=== PATIENT | female | born 1990 | race Caucasian/White ===

== ENCOUNTER 2024-07-22 17:05 | Emergency (ER) | payer OTHER ==
[2024-07-22 17:22] VITALS: TEMP 99.1
[2024-07-22 17:49] LABS: Absolute Neutrophil Ct (ANC) 8.26 x10^3/uL (1.56-6.13); BASOPHIL % 0.4 % (0.1-1.2); Basophil (Absolute #) 0.05 x10^3/uL (0.01-0.08); Eosinophil % 1.8 % (0.7-5.8); Eosinophil (Absolute #) 0.23 x10^3/uL (0.04-0.36); Hematocrit 40.3 % (34.1-44.9); Hemoglobin 13.4 g/dL (11.2-15.7); IMMATURE GRAN # 0.05 x10^3u/L (0.001-0.031); IMMATURE GRAN % 0.4 % (0.001-0.429); Lymphocytes % 22.4 % (19.3-51.7); Mean Cell Volume 85.4 fL (79.4-94.8); Mean Corpuscular Hemoglobin 28.4 pg (25.6-32.2); Mean Corpuscular Hgb Concent. 33.3 g/dL (32.2-35.5); Mean Platelet Volume 9.4 fL (9.4-12.3); Monocyte (Absolute #) 1.44 x10^3/uL (0.24-0.86); Monocytes % 11.1 % (4.7-12.5); Neutrophil % 63.9 % (34.0-71.1); Platelet Count 292 x10^3/uL (182-369); Red Blood Count 4.72 x10^6/uL (3.93-5.22); Red Cell Distribution Width 14.1 % (11.7-14.4); White Blood Count 12.9 x10^3/uL (3.98-10.04)
[2024-07-22 18:03] LABS: ALBUMIN 4.1 g/dL (3.5-5.0); ANION GAP 11.3 MEQ/L (5-15); BILIRUBIN,TOTAL 0.2 mg/dL (0.2-1.3); Calcium 9.1 mg/dL (8.4-10.2); Creatinine 1 0.7 mg/dL (0.52-1.04); EST GLOMERULAR FILTRATION RATE 115.6 ML/MIN; Potassium 4.1 mmol/L (3.5-5.1); Total Protein 7.2 g/dL (6.3-8.2)
--- NOTE | 2024-07-22 18:14 | ERPHSYRPT ---
- History of Present Illness Source: patient Exam Limitations: no limitations Patient Subjective Stated Complaint: BILATERAL LOWER BACK PAIN RADIATING DOWN LEGS, PAIN IN UPPER BACK AND CHEST, HARD TO TAKE A DEEP BREATH. Triage Nursing Assessment: PT. BROUGHT TO ROOM VIA W/C, SHAKY, UNSTEADY WITH AMBULATION. A&OX3, RESP SHALLOW BUT REGULAR. SKIN, PINK, WARM CLAMMY. NO EDEMA NOTED. Timing/Duration: week(s) Severity: mild Associated Symptoms: denies symptoms Hx Tetanus, Diphtheria Vaccination/Date Given: Yes Hx Influenza Vaccination/Date Given: No Hx Pneumococcal Vaccination/Date Given: No Immunizations Up to Date: No <LEANN RICHARDYESH - Last Filed: 07/22/24 18:44> <LANCE FLORENCE - Last Filed: 07/22/24 20:37> - History of Present Illness Time Seen by Provider: 07/22/24 18:09 Physician History: Patient is 34-year-old female with significant past medical history of depression came to the emergency room with multiple complaints including substernal chest pain radiating to the back complaining of tingling and numbness in both lower extremities complaining of left and right groin pain complaining of lower back pain and complaining of some low-grade fever. Patient is concerned that she might have a sepsis so she came to the emergency room to get it checked out. Patient has a low-grade fever but otherwise no other symptoms include headache nausea vomiting abdominal pain shortness of breath. (JOSE MANUELELZBIETA) Allergies/Adverse Reactions: No Known Drug Allergies Allergy (Verified 07/22/24 17:26) Home Medications: Paroxetine HCl 20 mg [Paxil 20 MG] 2 tab PO DAILY 07/22/24 [History] Travel Risk - International Travel Have you traveled outside of the country in past 3 weeks: No - Emerging Infectious Disease Are you exhibiting symptoms associated with any current EIDs: Yes Symptoms: Fever, Headaches/Body Aches/ <JOSE MANUEL,ELZBIETA - Last Filed: 07/22/24 18:44> - Review of Systems Constitutional: No Fever, No Chills Eyes: No Symptoms Ears, Nose, & Throat: No Symptoms Respiratory: No Cough, No Dyspnea Cardiac: Chest Pain, No Edema, No Syncope Abdominal/Gastrointestinal: No Abdominal Pain, No Nausea, No Vomiting, No Diarrhea Genitourinary Symptoms: No Dysuria Musculoskeletal: Back Pain, No Neck Pain Skin: No Rash Neurological: No Dizziness, No Focal Weakness, No Sensory Changes Psychological: No Symptoms Endocrine: No Symptoms All Other Systems: Reviewed and Negative <ELZBIETA RICHARD - Last Filed: 07/22/24 18:44> - Past Medical History Pertinent Past Medical History: Yes Neurological History: No Pertinent History ENT History: No Pertinent History Cardiac History: No Pertinent History Respiratory History: No Pertinent History Endocrine Medical History: No Pertinent History Musculoskeletal History: No Pertinent History GI Medical History: No Pertinent History History: No Pertinent History Female Reproductive Disorders: No Pertinent History Other Medical History: DEPRESSION/ANXIETY ASSOCIATED WITH MENOPAUSE - Past Surgical History Past Surgical History: Yes Neuro Surgical History: No Pertinent History Cardiac: No Pertinent History Respiratory: No Pertinent History Gastrointestinal: No Pertinent History Genitourinary: No Pertinent History Musculoskeletal: No Pertinent History Female Surgical History: Hysterectomy Other Surgical History: OOPHORECTOMY - Female History Hx Last Menstrual Period: HYSTERECTOMY Hx Now: No - Social History Smoking Status: Current every day smoker How long have you smoked: 13 Exposure to second hand smoke: No Drug Use: none - Social Determinants of Health Will the patient participate in the screening: Yes Do you worry about a steady place to live?: No Do you have any problems with any of the following?: No known problems In the past 12 months,have you had to go without utilities?: No Transportation Issues: No Has anyone in your support network made you feel unsafe?: No Have you or anyone in your house had to go without enough: No <ELZBIETA RICHARD - Last Filed: 07/22/24 18:44> - Physical Exam General Appearance: no apparent distress, alert Eye Exam: PERRL/EOMI, eyes nml inspection Ears, Nose, Throat Exam: normal ENT inspection, TMs normal, pharynx normal, moist mucous membranes Neck Exam: normal inspection, non-tender, supple, full range of motion Respiratory Exam: normal breath sounds, lungs clear, No respiratory distress Cardiovascular Exam: regular rate/rhythm, normal heart sounds, normal peripheral pulses Gastrointestinal/Abdomen Exam: soft, normal bowel sounds, No tenderness, No mass Back Exam: normal inspection, normal range of motion, No CVA tenderness, No vertebral tenderness Extremity Exam: normal inspection, normal range of motion, pelvis stable Neurologic Exam: alert, oriented x 3, cooperative, normal mood/affect, nml cerebellar function, nml station & gait, sensation nml, No motor deficits Skin Exam: normal color, warm, dry, No rash Lymphatic Exam: No adenopathy SpO2: 96 <JOSE MANUEL,ELZBIETA - Last Filed: 07/22/24 18:44> - Nursing Vital Signs Nursing Vital Signs: Initial Vital Signs Pulse Rate 93 H 07/22/24 17:05 Respiratory Rate 20 07/22/24 17:05 Blood Pressure 150/99 07/22/24 17:05 O2 Sat by Pulse Oximetry 97 07/22/24 17:05 Pain Scale Pain Intensity 3 - Course Nursing assessment & vital signs reviewed: Yes EKG Interpreted by Me: Sinus Rhythm - Radiology Exams Chest X-ray Interpretation: Interpreted by me, Reviewed by me, No Pneumonia, No Pn eumothorax <JOSE MANUEL, - Last Filed: 07/22/24 18:44> Ordered Tests: Active Orders 24 hr Category Date Time Status Wildlife Photographer STAT Care 07/22/24 17:28 Active EKG-ER Only STAT Care 07/22/24 17:28 Active IV Insertion STAT Care 07/22/24 17:28 Active Pulse Oximetry (ED) STAT Care 07/22/24 17:28 Active CHEST 2 VIEWS (PA AND LAT) Stat Exams 07/22/24 17:29 Completed CBC W DIFF Stat Lab 07/22/24 17:47 Completed CMP Stat Lab 07/22/24 17:47 Completed Lactic Acid Stat Lab 07/22/24 17:28 Completed PROCALCITONIN Stat Lab 07/22/24 17:47 Completed UA W/RFX UR CULTURE Stat Lab 07/22/24 18:26 Completed Medication Summary Discontinued Medications Generic Name Dose Route Start Last Admin Trade Name Freq PRN Reason Stop Dose Admin Ceftriaxone Sodium 1,000 mg 07/22/24 18:27 07/22/24 19:02 Ceftriaxone Sodium 1000 Mg Inj Vial IM 07/22/24 18:28 Not Given STAT ONE Ceftriaxone Sodium 1 gm in 100 mls @ 200 mls/hr 07/22/24 18:40 07/22/24 19:31 Rocephin 1 Gm / 100 Ml Nacl IV 07/22/24 19:09 Infused STAT ONE Infusion Ceftriaxone Sodium Confirm 07/22/24 18:44 Rocephin 1 Gm / 100 Ml Nacl Administered 07/22/24 18:45 Dose 1 gm in 100 mls @ ud IV .STK-MED ONE Ketorolac Tromethamine 60 mg 07/22/24 18:25 07/22/24 19:02 Ketorolac Tromethamine 30 Mg/Ml Inj IM 07/22/24 18:26 Not Given STAT ONE Ketorolac Tromethamine 30 mg 07/22/24 18:39 07/22/24 19:05 Ketorolac Tromethamine 30 Mg/Ml Inj IV 07/22/24 18:40 30 mg STAT ONE Administration Ketorolac Tromethamine Confirm 07/22/24 18:43 Ketorolac Tromethamine 30 Mg/Ml Inj Administered 07/22/24 18:44 Dose 30 mg .ROUTE .STK-MED ONE Ondansetron HCl 4 mg 07/22/24 18:25 07/22/24 19:02 Ondansetron Hcl 4 Mg/2 Ml Vial IM 07/22/24 18:26 Not Given STAT ONE Ondansetron HCl 4 mg 07/22/24 18:41 07/22/24 18:46 Ondansetron Hcl 4 Mg/2 Ml Vial IV 07/22/24 18:42 4 mg STAT ONE Administration Ondansetron HCl Confirm 07/22/24 18:43 Ondansetron Hcl 4 Mg/2 Ml Vial Administered 07/22/24 18:44 Dose 4 mg .ROUTE .STK-MED ONE Lab/Rad Data: Laboratory Result Diagrams 07/22/24 17:47 07/22/24 17:47 Laboratory Results 07/22/24 07/22/24 07/22/24 Range/Units 18:26 17:47 17:47 WBC (3.98-10.04) x10^3/uL RBC (3.93-5.22) x10^6/uL Hgb (11.2-15.7) g/dL Hct (34.1-44.9) % MCV (79.4-94.8) fL MCH (25.6-32.2) pg MCHC (32.2-35.5) g/dL RDW (11.7-14.4) % Plt Count (182-369) x10^3/uL MPV (9.4-12.3) fL Gran % (34.0-71.1) % Immature Gran % (Auto) (0.001-0.429) % Nucleat RBC Rel Count (0.00-0.2) % Eos # (Auto) (0.04-0.36) x10^3/uL Immature Gran # (Auto) (0.001-0.031) x10^3u/L Absolute Lymphs (auto) (1.18-3.74) x10^3/uL Absolute Monos (auto) (0.24-0.86) x10^3/uL Absolute Nucleated RBC (0.00-0.012) x10^3u/L Lymphocytes % (19.3-51.7) % Monocytes % (4.7-12.5) % Eosinophils % (0.7-5.8) % Basophils % (0.1-1.2) % Absolute Granulocytes (1.56-6.13) x10^3/uL Basophils # (0.01-0.08) x10^3/uL Sodium 141 (135-145) mmol/L Potassium 4.1 (3.5-5.1) mmol/L Chloride 103 (98-107) mmol/L Carbon Dioxide 30 (22-30) mmol/L Anion Gap 11.3 (5-15) MEQ/L BUN 14 (7-17) mg/dL Creatinine 0.70 (0.52-1.04) mg/dL Estimated GFR 115.6 ML/MIN Glucose 106 (74-106) mg/dL Lactic Acid (0.4-2.0) Calcium 9.1 (8.4-10.2) mg/dL Total Bilirubin 0.20 (0.2-1.3) mg/dL AST 17 (14-36) U/L ALT 19 (0-35) U/L Alkaline Phosphatase 86 (38-126) U/L Serum Total Protein 7.2 (6.3-8.2) g/dL Albumin 4.1 (3.5-5.0) g/dL Procalcitonin 0.043 (0.030-0.080) ng/mL Urine Color Yellow (Yellow) Urine Appearance Clear (Clear) Urine pH 7.0 (4.6-8.0) Ur Specific [place] 1.020 (1.005-1.030) Urine Protein Negative (Negative) Urine Glucose (UA) Negative (Negative) mg/dL Urine Ketones Negative (Negative) Urine Blood Negative (Negative) Urine Nitrite Negative (Negative) Urine Bilirubin Negative (Negative) Urine Urobilinogen 0.2 (0.2) mg/dL Ur Leukocyte Esterase Trace A (Negative) U Hyaline Cast (Auto) NONE SEEN (0-2) /LPF Urine Microscopic RBC 0-2 (0-5) /HPF Urine Microscopic WBC 3-5 (0-5) /HPF Ur Epithelial Cells Few (None Seen) /HPF Urine Bacteria Rare A (None Seen) /HPF Urine Culture Reflexed NO (NO) 07/22/24 07/22/24 Range/Units 17:47 17:28 WBC 12.9 H (3.98-10.04) x10^3/uL RBC 4.72 (3.93-5.22) x10^6/uL Hgb 13.4 (11.2-15.7) g/dL Hct 40.3 (34.1-44.9) % MCV 85.4 (79.4-94.8) fL MCH 28.4 (25.6-32.2) pg MCHC 33.3 (32.2-35.5) g/dL RDW 14.1 (11.7-14.4) % Plt Count 292 (182-369) x10^3/uL MPV 9.4 (9.4-12.3) fL Gran % 63.9 (34.0-71.1) % Immature Gran % (Auto) 0.4 (0.001-0.429) % Nucleat RBC Rel Count 0.0 (0.00-0.2) % Eos # (Auto) 0.23 (0.04-0.36) x10^3/uL Immature Gran # (Auto) 0.05 H (0.001-0.031) x10^3u/L Absolute Lymphs (auto) 2.90 (1.18-3.74) x10^3/uL Absolute Monos (auto) 1.44 H (0.24-0.86) x10^3/uL Absolute Nucleated RBC 0.00 (0.00-0.012) x10^3u/L Lymphocytes % 22.4 (19.3-51.7) % Monocytes % 11.1 (4.7-12.5) % Eosinophils % 1.8 (0.7-5.8) % Basophils % 0.4 (0.1-1.2) % Absolute Granulocytes 8.26 H (1.56-6.13) x10^3/uL Basophils # 0.05 (0.01-0.08) x10^3/uL Sodium (135-145) mmol/L Potassium (3.5-5.1) mmol/L Chloride (98-107) mmol/L Carbon Dioxide (22-30) mmol/L Anion Gap (5-15) MEQ/L BUN (7-17) mg/dL Creatinine (0.52-1.04) mg/dL Estimated GFR ML/MIN Glucose (74-106) mg/dL Lactic Acid 0.9 (0.4-2.0) Calcium (8.4-10.2) mg/dL Total Bilirubin (0.2-1.3) mg/dL AST (14-36) U/L ALT (0-35) U/L Alkaline Phosphatase (38-126) U/L Serum Total Protein (6.3-8.2) g/dL Albumin (3.5-5.0) g/dL Procalcitonin (0.030-0.080) ng/mL Urine Color (Yellow) Urine Appearance (Clear) Urine pH (4.6-8.0) Ur Specific [place] (1.005-1.030) Urine Protein (Negative) Urine Glucose (UA) (Negative) mg/dL Urine Ketones (Negative) Urine Blood (Negative) Urine Nitrite (Negative) Urine Bilirubin (Negative) Urine Urobilinogen (0.2) mg/dL Ur Leukocyte Esterase (Negative) U Hyaline Cast (Auto) (0-2) /LPF Urine Microscopic RBC (0-5) /HPF Urine Microscopic WBC (0-5) /HPF Ur Epithelial Cells (None Seen) /HPF Urine Bacteria (None Seen) /HPF Urine Culture Reflexed (NO) - Progress Progress: unchanged, pain not gone completely Counseled pt/family regarding: lab results, diagnosis, need for follow-up, rad results <ELZBIETA RICHARD - Last Filed: 07/22/24 18:44> <LANCE FLORENCE - Last Filed: 07/22/24 20:37> - Progress Progress Note: Patient was stable throughout stay. She was turned over to me at shift change. We are basically just waiting on some results from radiology. Her chest CTA showed no acute findings in her lower extremity ultrasound was negative. At this time I talked to the patient and I think she is having some radicular symptoms from disc herniation. We discussed that it and going to have her rest at home I will start her on prednisone and she can follow-up with her primary care doctor and return if symptoms worsen. 07/22/24 20:33 (LANCE FLORENCE) Medical Desision Making - Diagnostic Testing Diagnostic test were ordered, analyzed, and reviewed by me: Yes Radiological Interpretation: Interpreted by me, Reviewed by me - Risk of complications Low Risk: Low risk of morbidity from additional dx testing or treatment <ELZBIETA RICHARD - Last Filed: 07/22/24 18:44> - Departure Departure Disposition: Home Critical Care Time: No <ELZBIETA RICHARD - Last Filed: 07/22/24 18:44> - Departure Departure Disposition: Home Critical Care Time: No <LANCE FLORENCE - Last Filed: 07/22/24 20:37> - Departure Clinical Impression: Sciatica Condition: Stable Referrals: MICHAEL BULLOCK FNP [Primary Care Provider] - Follow up/PCP as directed Instructions: Degenerative Disc Disease ED, Radiculopathy of the neck and back (including sciatica)
[2024-07-22] MEDS ORDERED: TORAdol 30 mg Injection ONE (18:43)
[2024-07-22] MEDS ORDERED: Zofran 4 MG/2 ML VIAL ONE (18:43)
[2024-07-22] MEDS ORDERED: ROCEPHIN 1 GM / 100 ML NaCl 1 GM/100 ML IVPB IV ONE (18:44)
--- NOTE | 2024-07-22 18:45 | XRAY ---
Indication: Chest pain. Comparison: None PA/lateral chest demonstrates normal heart and lungs. Bony thorax intact with old left clavicle shaft fracture.
[2024-07-22 18:46] LABS: Appearance Clear (Clear); Bacteria Rare /HPF (None Seen); Bilirubin Negative (Negative); Blood Negative (Negative); Epithelial Cells Few /HPF (None Seen); Glucose, Urine Negative (Negative); Hyaline Casts NONE SEEN /LPF (0-2); Ketones Negative (Negative); Leukocyte Esterase Trace (Negative); Nitrite Negative (Negative); Protein,Urine Dip Negative (Negative); RBC 0-2 /HPF (0-5); Urobilinogen 0.2 mg/dL (0.2)
[2024-07-22] MEDS: Zofran 4 MG/2 ML VIAL IV ONE (18:46)
[2024-07-22] MEDS: ROCEPHIN 1 GM / 100 ML NaCl 1 GM/100 ML IVPB IV ONE (19:00)
[2024-07-22] MEDS: TORAdol 30 mg Injection IM ONE (19:02)
[2024-07-22] MEDS: Rocephin 1000 MG INJ IM ONE (19:02)
[2024-07-22] MEDS: Zofran 4 MG/2 ML VIAL IM ONE (19:02)
[2024-07-22] MEDS: TORAdol 30 mg Injection IV ONE (19:05)
[2024-07-22 20:06] VITALS: BP 130/82; PULSE 93; RESP 19; O2SAT 95
== END 2024-07-22 20:49 | disposition home or self-care (01) ==
LOC: ED 17:05
DX: M54.40 Lumbago with sciatica, unspecified side (principal); R07.9 Chest pain, unspecified; R10.30 Lower abdominal pain, unspecified
CPT/HCPCS: 36415; 71046; 80053; 81001; 83605; 84145; 85025; 93005; 93041; 94760; 96365; 96374; 96375; 99284; 99285; J0696; J1885; J2405

== ENCOUNTER 2024-08-06 02:19 | Emergency (ER) | payer OTHER ==
[2024-08-06 02:41] VITALS: TEMP 98.9
--- NOTE | 2024-08-06 03:38 | ERPHSYRPT ---
- History of Present Illness Time Seen by Provider: 08/06/24 02:50 Source: patient, family, old records Exam Limitations: no limitations Patient Subjective Stated Complaint: pt states she has been having lt sided pain since before last visit. states now pain is in her lt head, jaw, and neck. states she has also has pain in her lt arm. cont to have pain in her lt back, gr oin, and knee Triage Nursing Assessment: pt alert and oriented, answers questions approp. pt ambulates into room with limping gait noted. respirations nonlabored. skin warm and dry. pupils equal and reactive. bilat upper and lower ext strength equal. Physician History: This is a 34-year-old white female patient was brought to the emergency depart ment by private vehicle and does not have a local primary care provider. Her complaint is that she has pain in the left side of her head all the way down to her feet. The symptoms began on on approximately 07/19/2024. She was seen in our emergency department on 07/22/2024. The workup results were unremarkable. Patient was placed on steroids which seem to help relieve her pain to a degree but the pain did not completely resolve. She ran out of the steroids a few days ago and the pain was more intense and she was alternating Tylenol and ibuprofen medication. Patient denies any type of trauma. There is been no visual changes. She does feel as though the left side is more weak than the right side. She has never had this type of episode in the past. There are no new medications that she is taking. She denies shortness of breath. She denies chest pain. She denies abdominal pain. She was told by a nurse practitioner friend that at some point she needs a MRI. She is aware that our facility has the ability to do an MRI Tuesday through Tuesday approximately 8 AM to 4 PM each day. She will need to have this study performed as an outpatient Timing/Duration: week(s) (2-1/2 weeks), intermittent, worse Severity: mild (To moderate) Modifying Factors: Improves With: movement Associated Symptoms: weakness (Mild left side from the top of her head to the bottom of her foot on the left side) Allergies/Adverse Reactions: No Known Drug Allergies Allergy (Verified 08/06/24 02:42) Home Medications: Paroxetine HCl 20 mg [Paxil 20 MG] 2 tab PO DAILY 07/22/24 [History] Hx Tetanus, Diphtheria Vaccination/Date Given: Yes Hx Influenza Vaccination/Date Given: No Hx Pneumococcal Vaccination/Date Given: No Immunizations Up to Date: Yes Travel Risk - International Travel Have you traveled outside of the country in past 3 weeks: No - Emerging Infectious Disease Are you exhibiting symptoms associated with any current EIDs: No Symptoms: Fever, Headaches/Body Aches/ - Review of Systems Constitutional: Weakness (Mild left side from the top of her head to the bottom of her foot) Eyes: No Symptoms Ears, Nose, & Throat: No Symptoms Respiratory: No Symptoms Cardiac: No Symptoms Abdominal/Gastrointestinal: No Symptoms Genitourinary Symptoms: No Symptoms Musculoskeletal: No Symptoms Skin: No Symptoms Neurological: No Symptoms Psychological: Anxiety Endocrine: No Symptoms Hematologic/Lymphatic: No Symptoms Immunological/Allergic: No Symptoms All Other Systems: Reviewed and Negative - Past Medical History Pertinent Past Medical History: Yes Neurological History: No Pertinent History ENT History: No Pertinent History Cardiac History: No Pertinent History Respiratory History: No Pertinent History Endocrine Medical History: No Pertinent History Musculoskeletal History: No Pertinent History GI Medical History: No Pertinent History History: No Pertinent History Female Reproductive Disorders: No Pertinent History Other Medical History: DEPRESSION/ANXIETY ASSOCIATED WITH MENOPAUSE - Past Surgical History Past Surgical History: Yes Neuro Surgical History: No Pertinent History Cardiac: No Pertinent History Respiratory: No Pertinent History Gastrointestinal: No Pertinent History Genitourinary: No Pertinent History Musculoskeletal: No Pertinent History, Orthopedic Surgery Female Surgical History: Hysterectomy Other Surgical History: OOPHORECTOMY, bilat carpal tunnel - Female History Hx Last Menstrual Period: none- hyster Hx Now: No - Social History Smoking Status: Current every day smoker How long have you smoked: 15 Exposure to second hand smoke: No Drug Use: none - Social Determinants of Health Will the patient participate in the screening: Yes Do you worry about a steady place to live?: No Do you have any problems with any of the following?: No known problems In the past 12 months,have you had to go without utilities?: No Transportation Issues: No Has anyone in your support network made you feel unsafe?: No Have you or anyone in your house had to go without enough: No - Nursing Vital Signs Nursing Vital Signs: Initial Vital Signs Temperature 98.9 F 08/06/24 02:26 Pulse Rate 108 H 08/06/24 02:26 Respiratory Rate 16 08/06/24 02:26 Blood Pressure 168/92 08/06/24 02:26 O2 Sat by Pulse Oximetry 98 08/06/24 02:26 Pain Scale Pain Intensity [Left] 7 Pain Intensity 6 - Physical Exam General Appearance: no apparent distress, alert, anxiety Eye Exam: PERRL/EOMI, eyes nml inspection Ears, Nose, Throat Exam: normal ENT inspection, moist mucous membranes Neck Exam: normal inspection, non-tender, supple, full range of motion Respiratory Exam: normal breath sounds, lungs clear, airway intact, No chest tenderness, No respiratory distress Cardiovascular Exam: regular rate/rhythm, normal heart sounds, normal peripheral pulses Gastrointestinal/Abdomen Exam: soft, normal bowel sounds, No tenderness Pelvic Exam: not done Rectal Exam: not done Back Exam: normal inspection, normal range of motion, No CVA tenderness, No vertebral tenderness Extremity Exam: normal inspection, normal range of motion, pelvis stable Neurologic Exam: alert, oriented x 3, cooperative, 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 Skin Exam: normal color, warm, dry Lymphatic Exam: No adenopathy SpO2 Interpretation: normal SpO2: 98 O2 Delivery: Room Air - Course Nursing assessment & vital signs reviewed: Yes Ordered Tests: Active Orders 24 hr Category Date Time Status IV Insertion STAT Care 08/06/24 03:32 Active CERVICAL SPINE WO CONTRAST [CT] Stat Exams 08/06/24 03:35 Completed HEAD WITHOUT CONTRAST [CT] Stat Exams 08/06/24 03:35 Completed LUMBAR SPINE W/O [CT] Stat Exams 08/06/24 03:35 Completed THORACIC SPINE W/O CONTRAST [CT] Stat Exams 08/06/24 03:35 Completed CBC W DIFF Stat Lab 08/06/24 03:48 Completed CMP Stat Lab 08/06/24 03:48 Completed CULTURE,URINE Stat Lab 08/06/24 04:39 Received ESR [Erythrocyte Sedimentation Rate] Stat Lab 08/06/24 03:48 Completed HCG QUALITATIVE, SERUM Stat Lab 08/06/24 04:00 Completed Lactic Acid Stat Lab 08/06/24 03:45 Completed MAG [MAGNESIUM] Stat Lab 08/06/24 03:48 Completed MONO SCREEN Stat Lab 08/06/24 03:48 Completed PROCALCITONIN Stat Lab 08/06/24 03:48 Completed TSH [TSH, 3RD Generation] Stat Lab 08/06/24 04:00 Completed UA W/RFX UR CULTURE Stat Lab 08/06/24 04:39 Completed Urine Triage Profile Stat Lab 08/06/24 04:40 Completed VBG [VENOUS BLOOD GAS] Stat Lab 08/06/24 03:45 Completed VBG [VENOUS BLOOD GAS] Stat Lab 08/06/24 06:13 Completed Medication Summary Generic Name Dose Route Start Last Admin Trade Name Marlon PRN Reason Stop Dose Admin Ceftriaxone Sodium 1 gm in 100 mls @ 200 mls/hr 08/06/24 06:13 Rocephin 1 Gm / 100 Ml Nacl IV 08/06/24 06:42 STAT ONE Discontinued Medications Generic Name Dose Route Start Last Admin Trade Name Freq PRN Reason Stop Dose Admin Methylprednisolone Sodium 0 mg 08/06/24 03:36 08/06/24 03:51 Succinate 125 mg/ Sterile IV 08/06/24 03:37 125 mg Water 2 ml STAT ONE Administration Methylprednisolone Sodium Succinate Confirm 08/06/24 03:44 Methylprednis Sod Succ 125 Mg/2 Ml Vial Administered 08/06/24 03:45 Dose 125 mg .ROUTE .STK-MED ONE Orphenadrine Citrate 60 mg 08/06/24 03:36 08/06/24 03:51 Orphenadrine Citrate 60 Mg/2 Ml Vial IV 08/06/24 03:37 60 mg STAT ONE Administration Orphenadrine Citrate Confirm 08/06/24 03:44 Orphenadrine Citrate 60 Mg/2 Ml Vial Administered 08/06/24 03:45 Dose 60 mg .ROUTE .STK-MED ONE Sterile Water Confirm 08/06/24 03:44 Water For Injection,Sterile 10 Ml Vial Administered 08/06/24 03:45 Dose 10 ml IJ .STK-MED ONE Lab/Rad Data: Laboratory Result Diagrams 08/06/24 03:48 08/06/24 03:48 Laboratory Results 08/06/24 08/06/24 08/06/24 Range/Units 06:13 04:40 04:39 WBC (3.98-10.04) x10^3/uL RBC (3.93-5.22) x10^6/uL Hgb (11.2-15.7) g/dL Hct (34.1-44.9) % MCV (79.4-94.8) fL MCH (25.6-32.2) pg MCHC (32.2-35.5) g/dL RDW (11.7-14.4) % Plt Count (182-369) x10^3/uL MPV (9.4-12.3) fL Gran % (34.0-71.1) % Immature Gran % (Auto) (0.001-0.429) % Nucleat RBC Rel Count (0.00-0.2) % Eos # (Auto) (0.04-0.36) x10^3/uL Immature Gran # (Auto) (0.001-0.031) x10^3u/L Absolute Lymphs (auto) (1.18-3.74) x10^3/uL Absolute Monos (auto) (0.24-0.86) x10^3/uL Absolute Nucleated RBC (0.00-0.012) x10^3u/L Lymphocytes % (19.3-51.7) % Monocytes % (4.7-12.5) % Eosinophils % (0.7-5.8) % Basophils % (0.1-1.2) % Absolute Granulocytes (1.56-6.13) x10^3/uL Basophils # (0.01-0.08) x10^3/uL ESR (0-20) mm/hr pO2/FiO2 Ratio 21.0 % VBG pH 7.42 (7.32-7.42) VBG pCO2 at Pat Temp 39 L (42-55) mm/Hg VBG pO2 at Pat Temp 113 H (25-40) mm/Hg VBG HCO3 25.3 (22-28) meq/L VBG O2 Sat (Mariano) 99.3 (95-100) VBG Base Excess 0.8 (-2.0-2.0) VBG Hemoglobin 13.5 VBG Carboxyhemoglobin 3.7 (0.0-6.9) % T HGB POC Potassium 4.0 (3.5-5.1) Sodium (135-145) mmol/L Potassium (3.5-5.1) mmol/L Chloride (98-107) mmol/L Carbon Dioxide (22-30) mmol/L Anion Gap (5-15) MEQ/L BUN (7-17) mg/dL Creatinine (0.52-1.04) mg/dL Estimated GFR ML/MIN Glucose (74-106) mg/dL Lactic Acid (0.4-2.0) Calcium (8.4-10.2) mg/dL Magnesium (1.6-2.3) mg/dL Total Bilirubin (0.2-1.3) mg/dL AST (14-36) U/L ALT (0-35) U/L Alkaline Phosphatase (38-126) U/L Serum Total Protein (6.3-8.2) g/dL Albumin (3.5-5.0) g/dL Procalcitonin (0.030-0.080) ng/mL Free T4 (0.78-2.19) ng/dL TSH 3rd Generation (0.470-4.680) mIU/L Serum HCG, Qual (NEGATIVE) Urine Color Yellow (Yellow) Urine Appearance Clear (Clear) Urine pH 8.0 (4.6-8.0) Ur Specific [place] 1.020 (1.005-1.030) Urine Protein Negative (Negative) Urine Glucose (UA) Negative (Negative) mg/dL Urine Ketones Negative (Negative) Urine Blood Negative (Negative) Urine Nitrite Negative (Negative) Urine Bilirubin Negative (Negative) Urine Urobilinogen 1.0 A (0.2) mg/dL Ur Leukocyte Esterase Small A (Negative) U Hyaline Cast (Auto) NONE SEEN (0-2) /LPF Urine Microscopic RBC 3-5 (0-5) /HPF Urine Microscopic WBC 6-10 A (0-5) /HPF Ur Epithelial Cells Moderate A (None Seen) /HPF Urine Bacteria Moderate A (None Seen) /HPF Urine Culture Reflexed YES (NO) Urine Opiates Level NEGATIVE (NEGATIVE) Ur Methadone NEGATIVE (NEGATIVE) Urine Barbiturates NEGATIVE (NEGATIVE) Ur Phencyclidine (PCP) NEGATIVE (NEGATIVE) Urine Amphetamine NEGATIVE (NEGATIVE) U Benzodiazepine Level NEGATIVE (NEGATIVE) Urine Cocaine NEGATIVE (NEGATIVE) Urine Marijuana (THC) NEGATIVE (NEGATIVE) Monoscreen (NEGATIVE) 08/06/24 08/06/24 08/06/24 Range/Units 04:00 04:00 04:00 WBC (3.98-10.04) x10^3/uL RBC (3.93-5.22) x10^6/uL Hgb (11.2-15.7) g/dL Hct (34.1-44.9) % MCV (79.4-94.8) fL MCH (25.6-32.2) pg MCHC (32.2-35.5) g/dL RDW (11.7-14.4) % Plt Count (182-369) x10^3/uL MPV (9.4-12.3) fL Gran % (34.0-71.1) % Immature Gran % (Auto) (0.001-0.429) % Nucleat RBC Rel Count (0.00-0.2) % Eos # (Auto) (0.04-0.36) x10^3/uL Immature Gran # (Auto) (0.001-0.031) x10^3u/L Absolute Lymphs (auto) (1.18-3.74) x10^3/uL Absolute Monos (auto) (0.24-0.86) x10^3/uL Absolute Nucleated RBC (0.00-0.012) x10^3u/L Lymphocytes % (19.3-51.7) % Monocytes % (4.7-12.5) % Eosinophils % (0.7-5.8) % Basophils % (0.1-1.2) % Absolute Granulocytes (1.56-6.13) x10^3/uL Basophils # (0.01-0.08) x10^3/uL ESR (0-20) mm/hr pO2/FiO2 Ratio % VBG pH (7.32-7.42) VBG pCO2 at Pat Temp (42-55) mm/Hg VBG pO2 at Pat Temp (25-40) mm/Hg VBG HCO3 (22-28) meq/L VBG O2 Sat (Mariano) (95-100) VBG Base Excess (-2.0-2.0) VBG Hemoglobin VBG Carboxyhemoglobin (0.0-6.9) % T HGB POC Potassium (3.5-5.1) Sodium (135-145) mmol/L Potassium (3.5-5.1) mmol/L Chloride (98-107) mmol/L Carbon Dioxide (22-30) mmol/L Anion Gap (5-15) MEQ/L BUN (7-17) mg/dL Creatinine (0.52-1.04) mg/dL Estimated GFR ML/MIN Glucose (74-106) mg/dL Lactic Acid (0.4-2.0) Calcium (8.4-10.2) mg/dL Magnesium (1.6-2.3) mg/dL Total Bilirubin (0.2-1.3) mg/dL AST (14-36) U/L ALT (0-35) U/L Alkaline Phosphatase (38-126) U/L Serum Total Protein (6.3-8.2) g/dL Albumin (3.5-5.0) g/dL Procalcitonin (0.030-0.080) ng/mL Free T4 0.85 (0.78-2.19) ng/dL TSH 3rd Generation 0.715 (0.470-4.680) mIU/L Serum HCG, Qual NEGATIVE (NEGATIVE) Urine Color (Yellow) Urine Appearance (Clear) Urine pH (4.6-8.0) Ur Specific [place] (1.005-1.030) Urine Protein (Negative) Urine Glucose (UA) (Negative) mg/dL Urine Ketones (Negative) Urine Blood (Negative) Urine Nitrite (Negative) Urine Bilirubin (Negative) Urine Urobilinogen (0.2) mg/dL Ur Leukocyte Esterase (Negative) U Hyaline Cast (Auto) (0-2) /LPF Urine Microscopic RBC (0-5) /HPF Urine Microscopic WBC (0-5) /HPF Ur Epithelial Cells (None Seen) /HPF Urine Bacteria (None Seen) /HPF Urine Culture Reflexed (NO) Urine Opiates Level (NEGATIVE) Ur Methadone (NEGATIVE) Urine Barbiturates (NEGATIVE) Ur Phencyclidine (PCP) (NEGATIVE) Urine Amphetamine (NEGATIVE) U Benzodiazepine Level (NEGATIVE) Urine Cocaine (NEGATIVE) Urine Marijuana (THC) (NEGATIVE) Monoscreen (NEGATIVE) 08/06/24 08/06/24 08/06/24 Range/Units 03:48 03:48 03:48 WBC (3.98-10.04) x10^3/uL RBC (3.93-5.22) x10^6/uL Hgb (11.2-15.7) g/dL Hct (34.1-44.9) % MCV (79.4-94.8) fL MCH (25.6-32.2) pg MCHC (32.2-35.5) g/dL RDW (11.7-14.4) % Plt Count (182-369) x10^3/uL MPV (9.4-12.3) fL Gran % (34.0-71.1) % Immature Gran % (Auto) (0.001-0.429) % Nucleat RBC Rel Count (0.00-0.2) % Eos # (Auto) (0.04-0.36) x10^3/uL Immature Gran # (Auto) (0.001-0.031) x10^3u/L Absolute Lymphs (auto) (1.18-3.74) x10^3/uL Absolute Monos (auto) (0.24-0.86) x10^3/uL Absolute Nucleated RBC (0.00-0.012) x10^3u/L Lymphocytes % (19.3-51.7) % Monocytes % (4.7-12.5) % Eosinophils % (0.7-5.8) % Basophils % (0.1-1.2) % Absolute Granulocytes (1.56-6.13) x10^3/uL Basophils # (0.01-0.08) x10^3/uL ESR 54 H (0-20) mm/hr pO2/FiO2 Ratio % VBG pH (7.32-7.42) VBG pCO2 at Pat Temp (42-55) mm/Hg VBG pO2 at Pat Temp (25-40) mm/Hg VBG HCO3 (22-28) meq/L VBG O2 Sat (Mariano) (95-100) VBG Base Excess (-2.0-2.0) VBG Hemoglobin VBG Carboxyhemoglobin (0.0-6.9) % T HGB POC Potassium (3.5-5.1) Sodium (135-145) mmol/L Potassium (3.5-5.1) mmol/L Chloride (98-107) mmol/L Carbon Dioxide (22-30) mmol/L Anion Gap (5-15) MEQ/L BUN (7-17) mg/dL Creatinine (0.52-1.04) mg/dL Estimated GFR ML/MIN Glucose (74-106) mg/dL Lactic Acid (0.4-2.0) Calcium (8.4-10.2) mg/dL Magnesium (1.6-2.3) mg/dL Total Bilirubin (0.2-1.3) mg/dL AST (14-36) U/L ALT (0-35) U/L Alkaline Phosphatase (38-126) U/L Serum Total Protein (6.3-8.2) g/dL Albumin (3.5-5.0) g/dL Procalcitonin 0.062 (0.030-0.080) ng/mL Free T4 (0.78-2.19) ng/dL TSH 3rd Generation (0.470-4.680) mIU/L Serum HCG, Qual (NEGATIVE) Urine Color (Yellow) Urine Appearance (Clear) Urine pH (4.6-8.0) Ur Specific [place] (1.005-1.030) Urine Protein (Negative) Urine Glucose (UA) (Negative) mg/dL Urine Ketones (Negative) Urine Blood (Negative) Urine Nitrite (Negative) Urine Bilirubin (Negative) Urine Urobilinogen (0.2) mg/dL Ur Leukocyte Esterase (Negative) U Hyaline Cast (Auto) (0-2) /LPF Urine Microscopic RBC (0-5) /HPF Urine Microscopic WBC (0-5) /HPF Ur Epithelial Cells (None Seen) /HPF Urine Bacteria (None Seen) /HPF Urine Culture Reflexed (NO) Urine Opiates Level (NEGATIVE) Ur Methadone (NEGATIVE) Urine Barbiturates (NEGATIVE) Ur Phencyclidine (PCP) (NEGATIVE) Urine Amphetamine (NEGATIVE) U Benzodiazepine Level (NEGATIVE) Urine Cocaine (NEGATIVE) Urine Marijuana (THC) (NEGATIVE) Monoscreen POSITIVE A (NEGATIVE) 08/06/24 08/06/24 08/06/24 Range/Units 03:48 03:48 03:48 WBC 11.9 H (3.98-10.04) x10^3/uL RBC 4.89 (3.93-5.22) x10^6/uL Hgb 13.8 (11.2-15.7) g/dL Hct 41.7 (34.1-44.9) % MCV 85.3 (79.4-94.8) fL MCH 28.2 (25.6-32.2) pg MCHC 33.1 (32.2-35.5) g/dL RDW 14.4 (11.7-14.4) % Plt Count 291 (182-369) x10^3/uL MPV 9.6 (9.4-12.3) fL Gran % 76.5 H (34.0-71.1) % Immature Gran % (Auto) 0.3 (0.001-0.429) % Nucleat RBC Rel Count 0.0 (0.00-0.2) % Eos # (Auto) 0.09 (0.04-0.36) x10^3/uL Immature Gran # (Auto) 0.04 H (0.001-0.031) x10^3u/L Absolute Lymphs (auto) 1.89 (1.18-3.74) x10^3/uL Absolute Monos (auto) 0.75 (0.24-0.86) x10^3/uL Absolute Nucleated RBC 0.00 (0.00-0.012) x10^3u/L Lymphocytes % 15.8 L (19.3-51.7) % Monocytes % 6.3 (4.7-12.5) % Eosinophils % 0.8 (0.7-5.8) % Basophils % 0.3 (0.1-1.2) % Absolute Granulocytes 9.14 H (1.56-6.13) x10^3/uL Basophils # 0.03 (0.01-0.08) x10^3/uL ESR (0-20) mm/hr pO2/FiO2 Ratio % VBG pH (7.32-7.42) VBG pCO2 at Pat Temp (42-55) mm/Hg VBG pO2 at Pat Temp (25-40) mm/Hg VBG HCO3 (22-28) meq/L VBG O2 Sat (Mariano) (95-100) VBG Base Excess (-2.0-2.0) VBG Hemoglobin VBG Carboxyhemoglobin (0.0-6.9) % T HGB POC Potassium (3.5-5.1) Sodium 137 (135-145) mmol/L Potassium 3.8 (3.5-5.1) mmol/L Chloride 103 (98-107) mmol/L Carbon Dioxide 26 (22-30) mmol/L Anion Gap 11.2 (5-15) MEQ/L BUN 14 (7-17) mg/dL Creatinine 0.70 (0.52-1.04) mg/dL Estimated GFR 115.6 ML/MIN Glucose 98 (74-106) mg/dL Lactic Acid (0.4-2.0) Calcium 9.3 (8.4-10.2) mg/dL Magnesium 2.0 (1.6-2.3) mg/dL Total Bilirubin 0.40 (0.2-1.3) mg/dL AST 24 (14-36) U/L ALT 25 (0-35) U/L Alkaline Phosphatase 101 (38-126) U/L Serum Total Protein 7.8 (6.3-8.2) g/dL Albumin 4.3 (3.5-5.0) g/dL Procalcitonin (0.030-0.080) ng/mL Free T4 (0.78-2.19) ng/dL TSH 3rd Generation (0.470-4.680) mIU/L Serum HCG, Qual (NEGATIVE) Urine Color (Yellow) Urine Appearance (Clear) Urine pH (4.6-8.0) Ur Specific [place] (1.005-1.030) Urine Protein (Negative) Urine Glucose (UA) (Negative) mg/dL Urine Ketones (Negative) Urine Blood (Negative) Urine Nitrite (Negative) Urine Bilirubin (Negative) Urine Urobilinogen (0.2) mg/dL Ur Leukocyte Esterase (Negative) U Hyaline Cast (Auto) (0-2) /LPF Urine Microscopic RBC (0-5) /HPF Urine Microscopic WBC (0-5) /HPF Ur Epithelial Cells (None Seen) /HPF Urine Bacteria (None Seen) /HPF Urine Culture Reflexed (NO) Urine Opiates Level (NEGATIVE) Ur Methadone (NEGATIVE) Urine Barbiturates (NEGATIVE) Ur Phencyclidine (PCP) (NEGATIVE) Urine Amphetamine (NEGATIVE) U Benzodiazepine Level (NEGATIVE) Urine Cocaine (NEGATIVE) Urine Marijuana (THC) (NEGATIVE) Monoscreen (NEGATIVE) 08/06/24 08/06/24 Range/Units 03:45 03:45 WBC (3.98-10.04) x10^3/uL RBC (3.93-5.22) x10^6/uL Hgb (11.2-15.7) g/dL Hct (34.1-44.9) % MCV (79.4-94.8) fL MCH (25.6-32.2) pg MCHC (32.2-35.5) g/dL RDW (11.7-14.4) % Plt Count (182-369) x10^3/uL MPV (9.4-12.3) fL Gran % (34.0-71.1) % Immature Gran % (Auto) (0.001-0.429) % Nucleat RBC Rel Count (0.00-0.2) % Eos # (Auto) (0.04-0.36) x10^3/uL Immature Gran # (Auto) (0.001-0.031) x10^3u/L Absolute Lymphs (auto) (1.18-3.74) x10^3/uL Absolute Monos (auto) (0.24-0.86) x10^3/uL Absolute Nucleated RBC (0.00-0.012) x10^3u/L Lymphocytes % (19.3-51.7) % Monocytes % (4.7-12.5) % Eosinophils % (0.7-5.8) % Basophils % (0.1-1.2) % Absolute Granulocytes (1.56-6.13) x10^3/uL Basophils # (0.01-0.08) x10^3/uL ESR (0-20) mm/hr pO2/FiO2 Ratio 21.0 % VBG pH 7.49 H (7.32-7.42) VBG pCO2 at Pat Temp 36 L (42-55) mm/Hg VBG pO2 at Pat Temp 31 (25-40) mm/Hg VBG HCO3 27.4 (22-28) meq/L VBG O2 Sat (Mariano) 64.3 L (95-100) VBG Base Excess 4.1 H (-2.0-2.0) VBG Hemoglobin 13.8 VBG Carboxyhemoglobin 9.4 H* (0.0-6.9) % T HGB POC Potassium 3.9 (3.5-5.1) Sodium (135-145) mmol/L Potassium (3.5-5.1) mmol/L Chloride (98-107) mmol/L Carbon Dioxide (22-30) mmol/L Anion Gap (5-15) MEQ/L BUN (7-17) mg/dL Creatinine (0.52-1.04) mg/dL Estimated GFR ML/MIN Glucose (74-106) mg/dL Lactic Acid 1.3 (0.4-2.0) Calcium (8.4-10.2) mg/dL Magnesium (1.6-2.3) mg/dL Total Bilirubin (0.2-1.3) mg/dL AST (14-36) U/L ALT (0-35) U/L Alkaline Phosphatase (38-126) U/L Serum Total Protein (6.3-8.2) g/dL Albumin (3.5-5.0) g/dL Procalcitonin (0.030-0.080) ng/mL Free T4 (0.78-2.19) ng/dL TSH 3rd Generation (0.470-4.680) mIU/L Serum HCG, Qual (NEGATIVE) Urine Color (Yellow) Urine Appearance (Clear) Urine pH (4.6-8.0) Ur Specific [place] (1.005-1.030) Urine Protein (Negative) Urine Glucose (UA) (Negative) mg/dL Urine Ketones (Negative) Urine Blood (Negative) Urine Nitrite (Negative) Urine Bilirubin (Negative) Urine Urobilinogen (0.2) mg/dL Ur Leukocyte Esterase (Negative) U Hyaline Cast (Auto) (0-2) /LPF Urine Microscopic RBC (0-5) /HPF Urine Microscopic WBC (0-5) /HPF Ur Epithelial Cells (None Seen) /HPF Urine Bacteria (None Seen) /HPF Urine Culture Reflexed (NO) Urine Opiates Level (NEGATIVE) Ur Methadone (NEGATIVE) Urine Barbiturates (NEGATIVE) Ur Phencyclidine (PCP) (NEGATIVE) Urine Amphetamine (NEGATIVE) U Benzodiazepine Level (NEGATIVE) Urine Cocaine (NEGATIVE) Urine Marijuana (THC) (NEGATIVE) Monoscreen (NEGATIVE) - Progress Progress: improved, pain not gone completely Progress Note: 08/06/24 04:02 My medical decision making and the assignment of moderate complexity to this patient's medical issue today is based on review of the patient's past medical history, review of the patient's medication list, reviewed patient drug allergy list, history present illness and physical findings on examination. The workup in this patient includes placement of an intravenous line, CBC, CMP, urinalysis, Lyme disease screening, procalcitonin, sedimentation rate, urinalysis, urine test, urine drug triage, magnesium level, CT scan of the head, cervical spine, thoracic spine, and lumbar spine, all without contrast. 08/06/24 04:03 Differential diagnosis includes but is not limited to anxiety about health, fibromyalgia, multiple sclerosis, electrolyte abnormalities, arthritis/lupus, viral illness 08/06/24 06:26 I interpreted the patient's laboratory data results. Based on the laboratory data results, the patient appears to have mononucleosis, UTI. In addition her carboxyhemoglobin is elevated. She is a smoker. She also may have exposure to carbon monoxide at the home. We will discuss checking this at home with a carbon monoxide monitor today. CT scans were all performed without contrast and were interpreted by the radiologist. The results are as follows: CT scan of the head shows a pituitary fossa density and bilateral maxillary and ethmoid sinusitis. CT scan of the cervical spine is negative for any acute fracture or subluxation. CT scan of thoracic spine is negative for acute fracture or subluxation, CT scan of the lumbar spine is negative for acute fracture or subluxation. Counseled pt/family regarding: lab results, diagnosis, need for follow-up, rad results Medical Desision Making - Diagnostic Testing Diagnostic test were ordered, analyzed, and reviewed by me: Yes Radiological Interpretation: Reviewed by me, Teleradiologist Report - Risk of complications The pt has a mod risk of morbidity or mortality based on: Need for prescription drug management - Departure Departure Disposition: Home Clinical Impression: Headache, Arthralgia, Myalgia, Mononucleosis, Carboxyhemoglobinemia, UTI (urinary tract infection), Sinusitis, Pituitary abnormality Condition: Stable Critical Care Time: No Referrals: MICHAEL BULLOCK FNP [Primary Care Provider] - Follow up/PCP as directed Additional Instructions: Drink plenty of clear liquids. Take your medications as prescribed. May add Tylenol and ibuprofen for aches and pain control. Call your primary care provider today, 08/06/2024, to make arrangement for follow-up appointment for further evaluation management including follow-up on send out results. Discussed with him possible referral to neurology and rheumatology if indicated. Stop smoking cigarettes/tobacco. Avoid exposure to any type of smoke. Obtain a carbon monoxide detector today and check your home for levels. If there are high carbon monoxide levels in your home, avoid staying there until the issue has been fixed. Prescriptions: Cefdinir 300 mg PO BID #14 cap Prednisone 10 mg [Deltasone 10 mg] 10 mg PO TID #12 tablet Orphenadrine Citrate 100 mg [Norflex 100 MG Tablet] 100 mg PO BID #10 tab
[2024-08-06] MEDS ORDERED: Norflex 60 MG/2 ML ONE (03:44)
[2024-08-06] MEDS ORDERED: Sterile H2O 10 ml IJ ONE (03:44)
[2024-08-06] MEDS ORDERED: solu-MEDROL ONE (03:44)
[2024-08-06] MEDS: solu-MEDROL 125 MG, Sterile H2O 10 ml 2 ML IV ONE (03:51)
[2024-08-06] MEDS: Norflex 60 MG/2 ML IV ONE (03:51)
[2024-08-06 03:56] LABS: Absolute Neutrophil Ct (ANC) 9.14 x10^3/uL (1.56-6.13); BASOPHIL % 0.3 % (0.1-1.2); Basophil (Absolute #) 0.03 x10^3/uL (0.01-0.08); Eosinophil % 0.8 % (0.7-5.8); Eosinophil (Absolute #) 0.09 x10^3/uL (0.04-0.36); Hematocrit 41.7 % (34.1-44.9); Hemoglobin 13.8 g/dL (11.2-15.7); IMMATURE GRAN # 0.04 x10^3u/L (0.001-0.031); IMMATURE GRAN % 0.3 % (0.001-0.429); Lymphocyte (Absolute #) 1.89 x10^3/uL (1.18-3.74); Lymphocytes % 15.8 % (19.3-51.7); Mean Cell Volume 85.3 fL (79.4-94.8); Mean Corpuscular Hemoglobin 28.2 pg (25.6-32.2); Mean Corpuscular Hgb Concent. 33.1 g/dL (32.2-35.5); Mean Platelet Volume 9.6 fL (9.4-12.3); Monocyte (Absolute #) 0.75 x10^3/uL (0.24-0.86); Monocytes % 6.3 % (4.7-12.5); Neutrophil % 76.5 % (34.0-71.1); Platelet Count 291 x10^3/uL (182-369); Red Blood Count 4.89 x10^6/uL (3.93-5.22); Red Cell Distribution Width 14.4 % (11.7-14.4); White Blood Count 11.9 x10^3/uL (3.98-10.04)
[2024-08-06 04:03] LABS: ALBUMIN 4.3 g/dL (3.5-5.0); ANION GAP 11.2 MEQ/L (5-15); BILIRUBIN,TOTAL 0.4 mg/dL (0.2-1.3); Calcium 9.3 mg/dL (8.4-10.2); Creatinine 1 0.7 mg/dL (0.52-1.04); EST GLOMERULAR FILTRATION RATE 115.6 ML/MIN; Potassium 3.8 mmol/L (3.5-5.1); Total Protein 7.8 g/dL (6.3-8.2)
[2024-08-06 04:19] LABS: HCG SERUM TEST NEGATIVE (NEGATIVE)
[2024-08-06 05:04] LABS: VBG BASE EXCESS 4.1 (-2.0-2.0); VBG CARBOXYHEMOGLOBIN 9.4 % T HGB (0.0-6.9); VBG HCO3- 27.4 meq/L (22-28); VBG HEMOGLOBIN 13.8; VBG O2 SATURATION 64.3 (95-100); VBG POTASSIUM 3.9 (3.5-5.1); VBG pH 7.49 (7.32-7.42)
[2024-08-06 05:09] LABS: Amphetamine,Urine NEGATIVE (NEGATIVE); Barbiturate,Urine NEGATIVE (NEGATIVE); Benzodiazepine,Urine NEGATIVE (NEGATIVE); Cocaine,Urine NEGATIVE (NEGATIVE); Methadone,Urine NEGATIVE (NEGATIVE); Opiate,Urine NEGATIVE (NEGATIVE); PCP,Urine NEGATIVE (NEGATIVE); THC,Urine NEGATIVE (NEGATIVE)
[2024-08-06 05:19] LABS: Appearance Clear (Clear); Bacteria Moderate /HPF (None Seen); Bilirubin Negative (Negative); Blood Negative (Negative); Epithelial Cells Moderate /HPF (None Seen); Glucose, Urine Negative (Negative); Hyaline Casts NONE SEEN /LPF (0-2); Ketones Negative (Negative); Leukocyte Esterase Small (Negative); Nitrite Negative (Negative); Protein,Urine Dip Negative (Negative)
--- NOTE | 2024-08-06 05:31 | XRAY ---
CLINICAL HISTORY: Headache; left side pain COMPARISON: None. TECHNIQUE: Multiple contiguous axial images were obtained through the lumbar spine without IV contrast. Sagittal and coronal reformatted images were obtained from the axial data. CT scan was performed according to ALARA (as low as reasonably achievable). FINDINGS: Straightening of the lumbar spine is seen. Alignment of the spine is maintained. Vertebral bodies are maintained in height. No vertebral destructive changes are seen. L1-L2: No disc bulge, canal stenosis or neuroforaminal narrowing. Subarticular recesses are patent. L2-L3: No disc bulge, canal stenosis or neuroforaminal narrowing. Subarticular recesses are patent. L3-L4: No disc bulge, canal stenosis or neuroforaminal narrowing. Subarticular recesses are patent. L4-L5: No disc bulge, canal stenosis or neuroforaminal narrowing. Subarticular recesses are patent. L5-S1: No disc bulge, canal stenosis or neuroforaminal narrowing. Subarticular recesses are patent. Paravertebral soft tissues are unremarkable. IMPRESSION: 1. No acute fractures or subluxation detected. 2. Straightening of the lumbar spine is noted, likely due to paraspinal muscle spasm. MRI of the lumbar spine is suggested for better evaluation if clinically indicated. Electronically Signed by: Yg Laird MD. (08/06/2024 05:27:27 EST)
--- NOTE | 2024-08-06 05:33 | XRAY ---
CLINICAL HISTORY: Headache; left side pain COMPARISON: None. TECHNIQUE: Multiple contiguous axial images were obtained through the thoracic spine without IV contrast. Sagittal and coronal reformatted images were obtained from the axial data. CT scan was performed according to ALARA (as low as reasonably achievable). FINDINGS: The alignment of the thoracic spine is maintained. Alignment is maintained. Vertebral bodies are maintained in height. No vertebral destructive changes are seen. T1-T2: No disc bulge. No canal stenosis. No neuroforaminal narrowing. T2-T3: No disc bulge. No canal stenosis. No neuroforaminal narrowing. T3-T4: No disc bulge. No canal stenosis. No neuroforaminal narrowing. T4-T5: No disc bulge. No canal stenosis. No neuroforaminal narrowing. T5-T6: No disc bulge. No canal stenosis. No neuroforaminal narrowing. T6-T7: No disc bulge. No canal stenosis. No neuroforaminal narrowing. T7-T8: No disc bulge. No canal stenosis. No neuroforaminal narrowing. T8-T9: No disc bulge. No canal stenosis. No neuroforaminal narrowing. T9-T10: No disc bulge. No canal stenosis. No neuroforaminal narrowing. T10-T11: No disc bulge. No canal stenosis. No neuroforaminal narrowing. T11-T12: No disc bulge. No canal stenosis. No neuroforaminal narrowing. Paravertebral soft tissues are unremarkable. A calcified nodule is noted in the posterior basal segment of left lower lobe. Multiple calcified mediastinal lymph nodes are noted, possibly secondary to old infective etiology. IMPRESSION: 1. No acute fractures or subluxation detected. Electronically Signed by: Yg Laird MD. (08/06/2024 05:29:56 EST)
--- NOTE | 2024-08-06 05:35 | XRAY ---
CLINICAL HISTORY: Headache; left side pain COMPARISON: None. TECHNIQUE: Computed tomography of the cervical spine performed without intravenous contrast. Contiguous axial images were obtained from the skull base to T2, with sagittal and coronal reformatted images reconstructed from the axial data. CT scan was performed according to ALARA (as low as reasonable achievable). FINDINGS: Straightening of the normal cervical lordotic curvature is noted. Cervical vertebral bodies are normal in height and alignment, with no evidence of fracture or subluxation. Lateral masses of C1 are symmetrical, and the dens is intact. Prevertebral soft tissues are not widened. The remaining suprahyoid and infrahyoid soft tissues in the neck are unremarkable. C2-C3: No disc bulge, mass effect on the cord or neuroforaminal narrowing. C3-C4: No disc bulge, mass effect on the cord or neuroforaminal narrowing. C4-C5: No disc bulge, mass effect on the cord or neuroforaminal narrowing. C5-C6: No disc bulge, mass effect on the cord or neuroforaminal narrowing. C6-C7: No disc bulge, mass effect on the cord or neuroforaminal narrowing. C7-T1: No disc bulge, mass effect on the cord or neuroforaminal narrowing. Thyroid gland appears unremarkable. IMPRESSION: 1. Straightening of cervical spine. 2. No acute fracture or subluxation. Electronically Signed by: Yg Laird MD. (08/06/2024 05:31:30 EST)
--- NOTE | 2024-08-06 05:51 | XRAY ---
CLINICAL HISTORY: Headache; left side pain COMPARISON: None. TECHNIQUE: Multiple axial images are obtained from the skull base to the vertex without contrast. CT scan was performed according to ALARA (as low as reasonable achievable). FINDINGS: Focal hyperdensity of 8.5 x 5mm seen in pituitary fossa with attenuation value of 70HU. The brain shows normal morphology, attenuation, and volume for age. No evidence of space occupying lesion, edema, mass effect, midline shift, extra axial collection, or hydrocephalus is noted. Ventricles, sulci, and basal cisterns are symmetric and normal in size and configuration. The rincon-white matter differentiation is preserved. Mild polypoidal mucosal thickening is noted in bilateral maxillary and ethmoid sinuses. Remaining paranasal sinuses and mastoid air cells are well aerated. Orbital contents are within normal limits. Bony structures are intact. IMPRESSION: 1. Focal hyperdensity of 8.5 x 5mm seen in pituitary fossa with attenuation value of 70HU, needs MRI for further evaluation. 2. Evidence of mild bilateral maxillary and ethmoid sinusitis. Electronically Signed by: Yg Laird MD. (08/06/2024 05:47:37 EST)
[2024-08-06 06:19] LABS: VBG BASE EXCESS 0.8 (-2.0-2.0); VBG CARBOXYHEMOGLOBIN 3.7 % T HGB (0.0-6.9); VBG HCO3- 25.3 meq/L (22-28); VBG HEMOGLOBIN 13.5; VBG O2 SATURATION 99.3 (95-100); VBG pH 7.42 (7.32-7.42)
[2024-08-06 06:27] VITALS: PULSE 89; RESP 16
[2024-08-06 06:30] VITALS: O2SAT 98
[2024-08-06] MEDS ORDERED: ROCEPHIN 1 GM / 100 ML NaCl 1 GM/100 ML IVPB IV ONE (06:30)
[2024-08-06] MEDS: ROCEPHIN 1 GM / 100 ML NaCl 1 GM/100 ML IVPB IV ONE (06:34)
[2024-08-06 09:18] VITALS: BP 100/68
== END 2024-08-06 09:27 | disposition home or self-care (01) ==
LOC: ED 02:19
DX: N39.0 Urinary tract infection, site not specified (principal); B27.90 Infectious mononucleosis, unspecified without complication; R68.84 Jaw pain; M54.2 Cervicalgia; R51.9 Headache, unspecified; R53.1 Weakness; F17.200 Nicotine dependence, unspecified, uncomplicated; M79.18 Myalgia, other site; E87.29 Other acidosis
CPT/HCPCS: 36415; 70450; 72125; 72128; 72131; 80053; 80307; 81001; 82805; 83605; 83735; 84145; 84439; 84443; 84703; 85025; 85652; 86200; 86308; 86431; 86618; 87086; 96365; 96374; 96375; 99284; 99285; J0696; J2360; J2919